=== PATIENT | female | born 2005 | race Caucasian/White ===

== ENCOUNTER 2025-06-11 12:53 | Emergency (ER) | payer BC ==
[~2025-06-11] VITALS: Ht 170.2 cm; Wt 61.8 kg
--- NOTE | 2025-06-11 14:59 | ED.PDOC ---
History of Present Illness HPI Comments A 20 YEAR OLD FEMALE PRESENTS TO THE ED WITH COMPLAINT OF FLU-LIKE SYMPTOMS. PATIENT STATES HE HAS BEEN EXPERIENCING FLU-LIKE SYMPTOMS OFF AND ON FOR THE PAST 2 MONTHS WITH HER SYMPTOMS RETURNING YESTERDAY. PATIENT REPORTS SHE IS CURRENTLY EXPERIENCING BODY ACHES, CHILLS, SORE THROAT, LEFT EAR PAIN, AND AN O CCASIONAL EPIGASTRIC PAIN WITH NAUSEA AND VOMITING. PATIENT ALSO NOTES SHE HAS BEEN UNDER A LOT OF STRESS RECENTLY DUE TO WORKING TWO JOBS. PATIENT DENIES SHORTNESS OF BREATH, CHEST PAIN, HEADACHE, OR OTHER COMPLAINTS. NO OTHER SYMPTOMS OR MODIFYING FACTORS AT THIS TIME. PATIENT IS ALERT, ORIENTED X 4, AND HAS STEADY GAIT. Chief Complaint: Flu like Time Seen by MD: 13:03 Reviewed Notes: Nurses Notes, Medications Allergies: Coded Allergies: Aspirin (Verified Allergy, Unknown, 06/11/25) Home Meds Active Scripts Ondansetron Odt 4MG Tab (ZOFRAN PO) 4 Mg Tb, 4 MG PO BID, #20 TAB ODT TAB-DISSOLVE IN MOUTH, THEN SWALLOW Prov:MELODIE LENZ 06/11/25 Lansoprazole (Prevacid Solutab) 30 Mg Tab, 30 MG PO DAILY, #30 TAB Prov:MELODIE LENZ 06/11/25 Information Source: Patient Mode of Arrival: Ambulatory Severity: Moderate Timing: Days Duration: Since onset, Days Prehospital treatment: None Medication Refill: For: Other (FLU-LIKE SYMPTOMS WITH BODY ACHING AND FATIGUE. 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 History Family History Family History: Reviewed,noncontributory to illness Social History Smoker: Non-Smoker Alcohol: Denies ETOH Use Drugs: Marijuana Lives In: Home Constitutional: reports: chills, fatigue, fever; denies: diaphoresis, malaise, sweats, weakness, others EENTM: reports: ear pain, throat pain, throat swelling; denies: blurred vision, double vision, ear bleeding, ear discharge, ear drainage, ear ringing, eye pain, eye redness, hearing loss, mouth pain, mouth swelling, nasal discharge, nose bleeding, nose congestion, nose pain, photophobia, tearing, voice changes, others Respiratory: denies: cough, hemoptysis, orthopnea, SOB at rest, shortness of breath, SOB with excertion, stridor, wheezing, others Cardiovascular: denies: chest pain, dizzy spells, diaphoresis, Dyspnea on exertion, edema, irregular heart beat, left arm pain, lightheadedness, palp itations, PND, syncope, others Gastrointestinal: reports: abdominal pain, nausea, vomiting; denies: abdomen distended, blood streaked bowels, constipated, diarrhea, dysphagia, difficulty swallowing, hematemesis, melena, poor appetite, poor fluid intake, rectal bleeding, rectal pain, others Genitourinary: denies: abnormal vagina bleeding, burning, dyspareunia, dysuria, flank pain, frequency, hematuria, incontinence, pain, , vagina discharge, urgency, others Neurological: denies: dizziness, fainting, headache, left sided numbness, left sided weakness, numbness, paresthesia, pre-existing deficit, right sided numbness, right sided weakness, seizure, speech problems, tingling, tremors, weakness, others Musculoskeletal: reports: muscle pain; denies: back pain, gout, joint pain, joint swelling, muscle stiffness, neck pain, others Integumetry: denies: bruises, change in color, change in hair/nails, dryness, laceration, lesions, lumps, rash, wounds, others Allergic/Immunocompromised: denies: Difficulty Healing, Frequent Infections, Hives, Itching, others Hematologic/Lymphatic: denies: anemia, blood clots, easy bleeding, easy bruising, swollen glands, others Endocrine: denies: excessive hunger, excessive sweating, excessive thirst, excessive urination, flushing, intolerance to cold, intolerance to heat, unexplained weight gain, unexplained weight loss, others Psychiatric: reports: anxiety; denies: bipolar disorder, depression, hopeless, panic disorder, schizophrenia, sleepless, suicidal, others All Other Systems: Reviewed and Negative Physical Exam General Appearance: Mild Distress, Normal, Other (ANXIOUS ) HEENT: Normal ENT Inspection, PERRL/EOMI, Pharyngeal Erythema (MILD TONSILLAR SWELLING, NO EXUDATES. ), TMs Normal Neck: Full Range of Motion, Non-Tender, Normal, Normal Inspection Respiratory: Chest Non-Tender, Lungs Clear, No Accessory Muscle Use, No Respiratory Distress, Normal Breath Sounds Cardiovascular: No Edema, No JVD, No Murmur, No Gallop, Normal Peripheral Pulses, Regular Rate/Rhythm Breast Exam: Deferred Gastrointestinal: Epigastric, No Organomegaly, No Pulsatile Mass, Normal Bowel Sounds, Soft, Tenderness (MILD TENDERNESS EPIGASTRIC, NO GUARDING AND REBOUND TENDERNESS. 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 Was a procedure done?: No Differential Dx Considerations may include: ELECTROLYTE IMBALANCE, DEHYDRATION, VIRAL SYNDROME, TONSILLITIS, PHARYNGITIS, OTITIS MEDIA, SINUSITIS, UTI, ACUTE CYSTITIS X-Ray, Labs, Meds, VS Vital Signs Date Time Temp Pulse Resp B/P (MAP) Pulse Ox O2 Delivery O2 Flow Rate FiO2 06/11/25 15:22 84 16 98 Room Air 06/11/25 15:22 98.8 86 16 102/74 (83) 98 98.8 06/11/25 12:55 98.8 86 16 102/74 98 98.8 Lab Test 06/11/25 15:18 06/11/25 14:49 Range/Units Urine Color Yellow Yellow Urine Clarity Clear Clear Urine pH 6.0 5.0-9.0 Urine Specific Graham 1.026 1.001-1.035 Urine Protein Trace H Negative Urine Ketones Negative Negative Urine Blood 3+ H Negative /uL Urine Nitrite Negative Negative Urine Bilirubin Negative Negative Urine Urobilinogen 2 H Negative mg/dL Urine Leukocyte Esterase Negative Negative /uL Urine RBC 46 0 - 4 /hpf Urine Microscopic WBC 4 0-5 /HPF Urine Squamous Epithelial Cells Few <5 /hpf Urine Bacteria Few H None Seen /hpf Urine Mucus Few None Seen Urine Glucose Normal Normal mg/dL Urine Test Negative Negative White Blood Count 4.0 L 4.4-10.8 10^3/uL Red Blood Count 4.42 4.0-5.20 10^6/uL Hemoglobin 12.7 12.2-16.2 g/dL Hematocrit 37.4 36.0-46.0 % Mean Corpuscular Volume 84.6 80.0-100.0 fL Mean Corpuscular Hemoglobin 28.8 28.0-32.0 pg Mean Corpuscular Hemoglobin Concent 34.0 32.0-36.0 g/dL Red Cell Distribution Width 14.9 H 11.8-14.3 % Platelet Count 207 140-450 10^3/uL Mean Platelet Volume 8.1 6.9-10.8 fL Neutrophils (%) (Auto) 77.3 37.0-80.0 % Lymphocytes (%) (Auto) 11.8 10.0-50.0 % Monocytes (%) (Auto) 8.2 0.0-12.0 % Eosinophils (%) (Auto) 2.6 0.0-7.0 % Basophils (%) (Auto) 0.1 0.0-2.0 % Neutrophils # (Auto) 3.1 1.6-8.6 10 ^3/uL Lymphocytes # (Auto) 0.5 0.4-5.4 10 ^3/uL Monocytes # (Auto) 0.3 0-1.3 10 ^3/uL Eosinophils # (Auto) 0.1 0-0.8 10 ^3/uL Basophils # (Auto) 0 0-0.2 10 ^3/uL Nucleated Red Blood Cells 0.3 % Sodium Level 141 136-145 mmol/L Potassium Level 3.7 3.5-5.1 mmol/L Chloride Level 107 98-107 mmol/L Carbon Dioxide Level 24 20-31 mmol/L Anion Gap 10 5-15 Blood Urea Nitrogen 9 9-23 mg/dL Creatinine 0.70 0.550-1.02 mg/dL Glomerular Filtration Rate Calc 127 >90 mL/min BUN/Creatinine Ratio 12.9 10.0-20.0 Serum Glucose 86 74-106 mg/dL Calcium Level 8.9 8.7-10.4 mg/dL Thyroid Stimulating Hormone (TSH) 0.33 L 0.55-4.78 uIU/mL Current Medications Medications (Trade) Dose Ordered Sig/Katiana Route Start Time Stop Time Status Last Admin Sodium Chloride 1,000 ml @ 1,000 mls/hr Q1H ONCE IV 06/11/25 16:30 06/11/25 17:29 DC 06/11/25 16:32 Famotidine (Pepcid Injection) 20 mg ONCE ONCE IV 06/11/25 16:30 06/11/25 16:31 DC 06/11/25 17:17 Ketorolac Tromethamine (Toradol Injection) 30 mg ONCE ONCE IV 06/11/25 16:30 06/11/25 16:31 DC 06/11/25 17:19 ORDERING PHYSICIAN: MELODIE LENZ PROCEDURE(s): ABPL - CT AB PEL WO CON-NO ORAL OR IV REASON: EPIGASTRIC PAIN TO MIDDLE ABD ORDER NUMBER(s): [id number], ACCESSION NUMBER(s): [id number] EXAM: CT CT AB PEL WO CON-NO ORAL OR IV INDICATION: EPIGASTRIC PAIN TO MIDDLE ABD TECHNIQUE: Volumetric multidetector CT images of the abdomen and pelvis were obtained without contrast. All CT scans at this facility use dose modulation, iterative reconstruction, and/or weight based dosing when appropriate to reduce radiation dose to as low as reasonably achievable. COMPARISON: None FINDINGS: [LOWER CHEST]: The partially visualized lung bases are clear without a pleural effusion. The cardiac size is normal without pericardial effusion. [LIVER]: Normal hepatic size without suspicious focal lesion. [GALLBLADDER AND BILIARY TREE]: No cholelithiasis. [SPLEEN]: Unremarkable. [PANCREAS]: Unremarkable. [ADRENAL GLANDS]: Unremarkable [KIDNEYS]: No hydronephrosis. No nephroureterolithiasis. No suspicious focal lesion. [BLADDER]: Unremarkable for the degree distention. [REPRODUCTIVE ORGANS]: Unremarkable. [BOWEL/MESENTERY]: Uwlc-go-efqiksep stool burden. Normal appendix. Air-fluid level of the stomach without significant wall thickening. Correlate for acute gastritis. No CT evidence of bowel obstruction. [ASCITES]: Absent [LYMPHADENOPATHY]: No pathologically enlarged lymph nodes by CT size criteria [VASCULATURE]: No aneurysmal dilatation. [ABDOMINAL WALL]: Unremarkable. [MUSCULOSKELETAL]: No acute fracture or aggressive focal osseous lesion. No CT evidence of degenerative change of the visualized spine. IMPRESSION: 1. Air-fluid level of the stomach without significant wall thickening. 2. Correlate for acute gastritis. 3. Ifac-iu-xztdlmlo stool burden. 4. Correlate for constipation. ATED BY: PAVAN HOUSE MD DICTATED DATE/TIME: 06/11/251736 SIGNED BY: PAVAN HOUSE MD SIGNED DATE/TIME: 06/11/251736 CC: X-Ray, Labs, Meds, VS Comment EXTERNAL MEDICAL RECORDS REVIEWED: [NONE] INDEPENDENT HISTORIANS: [NONE] SOCIAL DETERMINANTS OF HEALTH: [NONE] LABS ORDERED: CBC, BMP, UA, TSH, URINE REVIEWED AND INTERPRETED RESULTS: TSH 0.33 IMAGING ORDERED: CT ABD/PEL: PATIENT AND PATIENT'S MOTHER WERE DEMANDING A CT OF HER ABDOMEN AND PELVIS DESPITE THERE BEING NO CLINICAL INDICATION FOR A NEED OF A CT SCAN. TREATMENTS ORDERED: NS 1L IV, PEPCID 20 MG IV, TORADOL 30 MG IV PROCEDURES PERFORMED: NONE CRITICAL CARE TIME: NONE I HAVE DISCUSSED THE PATIENT WITH THE ATTENDING PHYSICIAN DR. MARTINES AND HE AGREES WITH THE PATIENT'S PLAN OF CARE AND DISPOSITION. BASED ON HISTORY OF PRESENT ILLNESS, AND PHYSICAL EXAM, PATIENT WILL BE DISCHARGED HOME. DISCUSSED PLAN FOR DISCHARGE HOME WITH RX [PREVACID AND ZOFRAN 4MG]. MEDICATION WARNINGS GIVEN. SHARED DECISION MAKING: DISCUSSED WITH PATIENT THAT THEIR WORKUP WAS NORMAL. PATIENT INSTRUCTED TO FOLLOW UP WITH PRIMARY CARE PROVIDER IN 1-2 DAYS FOR RE- EVALUATION OF SYMPTOMS. PATIENT VERBALIZES UNDERSTANDING TO RETURN TO ED FOR NEW OR WORSENING SYMPTOMS OR IF FOLLOW UP WITH PCP CANNOT BE OBTAINED. PATIENT FEELS COMFORTABLE GOING HOME AT THIS TIME. ALL QUESTIONS ADDRESSED AT TIME OF DISCHARGE. Images Reviewed?: Images reviewed and evaluated by me Time of 1ST Reevaluation: 18:00 Reevaluation 1ST: Improved Patient Education/Counseling: Diagnosis, Treatment, Need For Follow Up Family Education/Counseling: Diagnosis, Treatment, Need For Follow Up Medical Screening: No EMC Exist At This Time SEPSIS Sepsis Screen Date sepsis recognized/suspect: Jun 11, 2025 Time Sepsis recognized/suspect: 1257 Recent Procedure: No On Antibiotic Therapy: No Respiratory Rate >20: No Heart Rate >90: No Temp<36 C (96.8 F) or >38.3 C: No SBP <90 or MAP <65 mmHG: No New Acute Mental Status Change: No Is the patient on CPAP, BIPAP,: No Physician Orders Heplock Iv (06/11/25 ) Ct Ab Pel Wo Con-No Oral Or Iv (06/11/25 16:34) Vital Signs Date Time Temp Pulse Resp B/P (MAP) Pulse Ox O2 Delivery O2 Flow Rate FiO2 06/11/25 15:22 84 16 98 Room Air 06/11/25 15:22 98.8 86 16 102/74 (83) 98 98.8 06/11/25 12:55 98.8 86 16 102/74 98 98.8 Laboratory Tests Test 06/11/25 14:49 White Blood Count 4.0 10^3/uL (4.4-10.8) L Departure 1 Departure Time of Disposition: 18:00 Impression: Primary Impression: Acute gastritis Qualified Codes: K29.00 - Acute gastritis without bleeding Additional Impression: Hyperthyroidism Disposition: HOME / SELF CARE / HOMELESS Condition: Stable Additional Instructions: FOLLOW-UP WITH PCP IN 1 TO 2 DAYS. TAKE MEDICATIONS PRESCRIBED. RETURN TO ED FOR ANY NEW OR WORSENING SYMPTOMS. e-Prescriptions Ondansetron Odt 4MG Tab (ZOFRAN PO) 4 Mg Tb 4 MG PO BID, #20 TAB ODT TAB-DISSOLVE IN MOUTH, THEN SWALLOW Prov: MELODIE LENZ 06/11/25 Lansoprazole (Prevacid Solutab) 30 Mg Tab 30 MG PO DAILY, #30 TAB Prov: MELODIE LENZ 06/11/25 Discharged With: Self, Relative (Mother) Critical Care Note Critical Care Time?: No Stability Stability form required: No I personally scribed for MELODIE LENZ ([email or web address]) on 06/11/25 at 14:59. Electronically submitted by Bladimir Zambrano ([email or web address]). I personally scribed for MELODIE LENZ ([email or web address]) on 06/11/25 at 17:45. Electronically submitted by Bladimir Zambrano ([email or web address]). MELODIE LENZ Jun 11, 2025 14:59
[2025-06-11 15:08] LABS: Hematocrit 37.4 % (36.0-46.0); Hemoglobin 12.7 g/dL (12.2-16.2); Mean Corpuscular Hemoglobin 28.8 pg (28.0-32.0); Mean Corpuscular Volume 84.6 fL (80.0-100.0); Nucleated Red Blood Cells % 0.3 %
[2025-06-11 15:13] LABS: Potassium 3.7 mmol/L (3.5-5.1); Sodium 141 mmol/L (136-145)
[2025-06-11 15:14] LABS: Anion Gap 10 (5-15); Carbon Dioxide 24 mmol/L (20-31)
[2025-06-11 15:15] LABS: Calcium 8.9 mg/dL (8.7-10.4)
[2025-06-11 15:16] LABS: Chloride 107 mmol/L (98-107)
[2025-06-11 15:19] LABS: BUN/Creatinine Ratio 12.9 (10.0-20.0); Blood Urea Nitrogen 9 mg/dL (9-23); Glucose 86 mg/dL (74-106)
[2025-06-11 15:22] VITALS: BP 102/74; PULSE 84; RESP 16; TEMP 98.8; O2SAT 98
[2025-06-11 15:51] LABS: Urine Protein, UAD TRACE (Negative)
[2025-06-11] MEDS: SODIUM CHLORIDE 0.9% 1,000 ML IV ONE (16:32)
[2025-06-11] MEDS: FAMOTIDINE (10MG/ML) 2ML VL IV ONE (17:17)
[2025-06-11] MEDS: KETOROLAC TROMETH 30 MG/ML 1ML VIAL IV ONE (17:19)
--- NOTE | 2025-06-11 17:40 | DVH ---
EXAM: CT CT AB PEL WO CON-NO ORAL OR IV INDICATION: EPIGASTRIC PAIN TO MIDDLE ABD TECHNIQUE: Volumetric multidetector CT images of the abdomen and pelvis were obtained without contrast. All CT scans at this facility use dose modulation, iterative reconstruction, and/or weight based dosing when appropriate to reduce radiation dose to as low as reasonably achievable. COMPARISON: None FINDINGS: [LOWER CHEST]: The partially visualized lung bases are clear without a pleural effusion. The cardiac size is normal without pericardial effusion. [LIVER]: Normal hepatic size without suspicious focal lesion. [GALLBLADDER AND BILIARY TREE]: No cholelithiasis. [SPLEEN]: Unremarkable. [PANCREAS]: Unremarkable. [ADRENAL GLANDS]: Unremarkable [KIDNEYS]: No hydronephrosis. No nephroureterolithiasis. No suspicious focal lesion. [BLADDER]: Unremarkable for the degree distention. [REPRODUCTIVE ORGANS]: Unremarkable. [BOWEL/MESENTERY]: Zmqd-wu-jbqtleze stool burden. Normal appendix. Air-fluid level of the stomach without significant wall thickening. Correlate for acute gastritis. No CT evidence of bowel obstruction. [ASCITES]: Absent [LYMPHADENOPATHY]: No pathologically enlarged lymph nodes by CT size criteria [VASCULATURE]: No aneurysmal dilatation. [ABDOMINAL WALL]: Unremarkable. [MUSCULOSKELETAL]: No acute fracture or aggressive focal osseous lesion. No CT evidence of degenerative change of the visualized spine. IMPRESSION: 1. Air-fluid level of the stomach without significant wall thickening. 2. Correlate for acute gastritis. 3. Emqk-au-dqehcytb stool burden. 4. Correlate for constipation.
[2025-06-11] MEDS ORDERED: ZOFR4T PO (17:51)
[2025-06-11] MEDS ORDERED: LANS30TA3 PO (17:51)
== END 2025-06-11 17:55 | disposition home or self-care (01) ==
LOC: ER 12:53
DX: K29.00 Acute gastritis without bleeding (principal); E05.90 Thyrotoxicosis, unspecified without thyrotoxic crisis or storm; Z88.6 Allergy status to analgesic agent; Z79.899 Other long term (current) drug therapy
CPT/HCPCS: 36415; 74176; 80048; 81001; 81025; 84443; 85025; 96361; 96374; 96375; 99285; J1885; J3490; J7030